=== PATIENT | male | born 1990 | race Hispanic/Latino ===

== ENCOUNTER 2020-12-09 08:19 | Day surgery (SDC) | payer MEDICAID ==
[2020-12-07 11:21] LABS: BASOPHILS % (AUTO) 0.4 % (0.0-5.0); EOSINOPHILS % (AUTO) 1.8 % (0.0-8.0); HEMATOCRIT 46.1 % (42-54); LYMPHOCYTES % (AUTO) 24.5 % (21.0-51.0); MEAN CORPUSCULAR HEMOGLOBIN 28.9 pg (27.0-33.0); MEAN CORPUSCULAR HGB CONC 32.8 g/dL (32.0-36.0); MEAN CORPUSCULAR VOLUME 88.3 fL (79-99); MONOCYTES % (AUTO) 6.7 % (3.0-13.0); NEUTROPHILS % (AUTO) 66.3 % (40.0-77.0); PLATELET COUNT (AUTO) 269 K/uL (130-400); RED BLOOD CELL COUNT(AUTO) 5.22 MIL/uL (4.50-6.20); RED CELL DISTRIBUTION WIDTH 13.4 % (11.0-15.5); WHITE BLOOD COUNT (AUTO) 7.7 K/uL (4.8-10.8)
[2020-12-07 11:29] LABS: CREATININE 0.9 mg/dL (0.5-1.5); POTASSIUM 4.9 mmol/L (3.5-5.1)
[2020-12-07 12:40] LABS: INR 1.01 (0.85-1.15)
[2020-12-07 12:41] LABS: PARTIAL THROMBOPLASTIN TIME 30.8 SEC (26.3-35.5)
[2020-12-09] VITALS (21 sets, daily range): BP systolic 91–153; BP diastolic 64–85
[~2020-12-09] VITALS: Ht 149.9 cm; Wt 45.4 kg
[~2020-12-09 08:19] MED LIST: 0.9%NACL 1000ML 1,000 ML IV SCH; CEFAZOLIN SODIUM 1 GM VIAL IVP ONE; TRAV2.5D OU
[2020-12-09] MEDS ORDERED: BUPIVACAINE/PF 0.25% 30ML VIAL IJ ONE (09:16)
[2020-12-09] MEDS ORDERED: LIDOCAINE HCL 1% MDV 50ML VIAL ONE (09:17)
[2020-12-09] MEDS ORDERED: CEFAZOLIN SODIUM 1 GM VIAL ONE (09:17)
[2020-12-09] MEDS ORDERED: MIDAZOLAM HCL 1 MG/ML 2ML VIAL ONE ×4 (09:17→10:31)
[2020-12-09] MEDS ORDERED: MEPERIDINE-PF 25 MG/ML SYG ONE ×4 (09:17→10:32)
[2020-12-09] MEDS ORDERED: IODIXANOL 320 MG/ML 100 ML VIAL ONE (10:11)
[2020-12-09] MEDS ORDERED: PROPOFOL 10 MG/ML 20ML VIAL IV ONE ×2 (11:22)
[2020-12-09] MEDS ORDERED: TRAM50TA4 PO (13:03)
== END 2020-12-09 16:25 | disposition home or self-care (01) ==
LOC: DAH 08:19
PROVIDERS: ATTEND Internal Medicine Cardiovascular Disease
DX: I44.2 Atrioventricular block, complete (principal); Z95.0 Presence of cardiac pacemaker; Z79.01 Long term (current) use of anticoagulants; Z79.899 Other long term (current) drug therapy; Z20.822 Contact with and (suspected) exposure to COVID-19
CPT/HCPCS: 33228; 36415; 80048; 85025; 85610; 85730; 93005; A4215; A4216; A4221; A4222; A4223 ×3; A4606; A4663; A6258; A6402; C1769 ×2; C1785; J0690; J2175 ×3; J2250 ×3; J3490 ×4; J7030; S0020; 99156; 99157; J2704; Q9967

== ENCOUNTER → 2024-04-16 | Outpatient (CLI) | payer BC ==
[~2024-04-16] MED LIST changes: -0.9%NACL 1000ML 1,000 ML IV SCH; -CEFAZOLIN SODIUM 1 GM VIAL IVP ONE; +IOHEXOL-350 50ML VIAL IV ONE; +IOHEXOL-350 75 ML VIAL IV ONE; +metoPROLOL tartRATE 1 MG/ML 5ML VIAL IV ONE
--- NOTE | 2024-04-16 17:15 | HMCIMG ---
CT CARDIAC ANGIO W/CONT. CCTA HISTORY: Cardiomyopathy COMPARISON: None TECHNIQUE: Multiple sequential axial images of the chest were obtained along with the CT angiogram of the chest study. Patient was given 100 cc of Omnipaque through intravenous route. FINDINGS: There is no evidence of pulmonary nodule or parenchymal disease. No pleural effusion or pericardial effusion is seen. There is no evidence of pneumothorax. There are normal size mediastinal and hilar lymph nodes. The heart is enlarged. Degenerative changes of the thoracolumbar spine are present. IMPRESSION: 1. No evidence of pulmonary nodule or effusion is seen. Please see CT angiogram report of coronary arteries.
== END | disposition home or self-care (01) ==
LOC: RAH 10:01
PROVIDERS: ATTEND Internal Medicine Cardiovascular Disease
DX: I44.0 Atrioventricular block, first degree (principal); I42.0 Dilated cardiomyopathy; I47.10 Supraventricular tachycardia, unspecified; I44.7 Left bundle-branch block, unspecified
CPT/HCPCS: 75574; J3490; Q9967 ×2

== ENCOUNTER → 2024-06-30 | Outpatient (CLI) | payer BC ==
[~2024-06-30] MED LIST changes: -IOHEXOL-350 50ML VIAL IV ONE; -IOHEXOL-350 75 ML VIAL IV ONE; -metoPROLOL tartRATE 1 MG/ML 5ML VIAL IV ONE
== END | disposition home or self-care (01) ==
LOC: RAH 13:56
PROVIDERS: ATTEND Internal Medicine Cardiovascular Disease
DX: I42.0 Dilated cardiomyopathy (principal)
CPT/HCPCS: 78481; A9512